=== PATIENT | female | born 1985 | race Caucasian/White ===

== ENCOUNTER 2019-04-01 11:26 | Outpatient (CLI) | payer OTHER, SELFPAY ==
--- NOTE | ~2019-04-01 | MM_ITS ---
EXAMINATION: MM screening wilma BI w salma HISTORY: Positive BRCA testing, screening mammogram TECHNIQUE: Craniocaudal and mediolateral oblique 3-D tomosynthesis images were obtained and synthetic 2-D images were generated. CAD analysis was submitted and interpreted. COMPARISON: None, baseline BREAST PARENCHYMAL COMPOSITION: There are scattered areas of fibroglandular density. FINDINGS: RIGHT BREAST: There is no evidence of suspicious mass, calcification, or architectural distortion to suggest malignancy. LEFT BREAST: There is focal asymmetry in the middle third of the upper outer quadrant of the breasts. In addition, an asymmetry is present in the anterior third of the inner breast 5 cm from the nipple on the craniocaudal view.. IMPRESSION: 1. Left breast findings as described above. 2. Additional mammographic views and possible breast ultrasound are recommended to evaluate for malig caden and establish a baseline given that this is the first mammographic examination. BI-RADS Category 0: Incomplete: Needs additional imaging evaluation. Reviewed, dictated and finalized at location A. NG INSTALLER IMPRESSION: 1. Left breast findings as described above. 2. Additional mammographic views and possible breast ultrasound are recommended to evaluate for malignancy and establish a baseline given that this is the fir st mammographic examination. BI-RADS Category 0: Incomplete: Needs additional imaging evaluation.
== END 2019-04-01 11:27 | disposition home or self-care (01) ==
LOC: ANHIMG 11:30
PROVIDERS: Visit Provider Internal Medicine Hematology & Oncology
DX: Z12.31 Encounter for screening mammogram for malignant neoplasm of breast (principal); R92.8 Other abnormal and inconclusive findings on diagnostic imaging of breast
CPT/HCPCS: 77063; 77067

== ENCOUNTER 2019-04-21 12:57 | Outpatient (CLI) | payer OTHER, SELFPAY ==
--- NOTE | ~2019-04-21 | MM_ITS ---
EXAMINATION: MM diagnostic mammo unilat LT HISTORY: Follow-up left breast asymmetries. TECHNIQUE: Additional 3-D tomosynthesis images of the left breast were performed and synthetic 2-D im ages were generated. CAD analysis was submitted and interpreted. COMPARISON: 04/01/2019 FINDINGS: Breast composed of scattered areas of fibroglandular density. The areas of asymmetry are le ss dense with spot compression views. No discrete mass or architectural distortion is identified. No suspicious calcifications. IMPRESSION: 1. Recommend left breast ultrasound for complete evaluation of left breast asymmetries. BI-RADS CATEGORY 0 - INCOMPLETE STUDY, NEED ADDITIONAL IMAGING EVALUATION. Reviewed, dictated and finalized at location A. IPPING CLERK IMPRESSION: 1. Recommend left breast ultrasound for complete evaluation of left breast asym metries. BI-RADS CATEGORY 0 - INCOMPLETE STUDY, NEED ADDITIONAL IMAGING EVALUATION.
== END 2019-04-21 12:58 | disposition home or self-care (01) ==
PROVIDERS: Visit Provider Internal Medicine Hematology & Oncology
DX: N63.0 Unspecified lump in unspecified breast (principal)
CPT/HCPCS: 77065

== ENCOUNTER 2019-04-24 10:51 | Outpatient (CLI) | payer OTHER, SELFPAY ==
--- NOTE | ~2019-04-24 | US_ITS ---
US breast LT complete INDICATION: Following up left breast asymmetry TECHNIQUE: Dedicated left breast ultrasound COMPARISON: Mammogram dated 04/21/2019 FINDINGS: The left breast is composed of normal heterogeneous echotexture without focal solid or cyst ic mass. IMPRESSION: 1: Normal left breast ultrasound. BI-RADS CATEGORY 1 - NEGATIVE Reviewed, dictated and finalized at location A. ERY MACHINE TENDER
== END 2019-04-24 10:52 | disposition home or self-care (01) ==
PROVIDERS: Visit Provider Internal Medicine Hematology & Oncology
DX: Z15.01 Genetic susceptibility to malignant neoplasm of breast (principal); Z15.09 Genetic susceptibility to other malignant neoplasm; N63.0 Unspecified lump in unspecified breast
CPT/HCPCS: 76641

== ENCOUNTER → 2020-01-18 15:24 | Outpatient (CLI) | payer OTHER, SELFPAY ==
--- NOTE | ~2020-01-18 | XR_ITS ---
EXAMINATION: XR lumbar spine 2-3V DATE: 01/18/2020 15:57 INDICATION: Mid to lower back pain TECHNIQUE: Anteroposterior and lateral views of the lumbar spine, and cone-down lateral view of the l umbosacral junction were obtained. COMPARISON: None. FINDINGS: Alignment is normal. Vertebral body and disc heights are normal. Sacrum and bilateral sacroiliac join ts are normal. Cholecystectomy clips in right upper quadrant. Normal bowel gas pattern. IMPRESSION: 1. . Negative lumbar spine radiographs. Reviewed, dictated and finalized at location H. O INTENSIVIST PHYSICIAN
== END ==
PROVIDERS: PCP Internal Medicine; Visit Provider Internal Medicine
DX: M54.5 Low back pain (principal)
CPT/HCPCS: 72100

== ENCOUNTER 2020-12-09 09:25 | Emergency (ER) | payer OTHER, SELFPAY ==
[2020-12-09 09:38] VITALS: BP 115/65; PULSE 64; RESP 16; TEMP 36.6; O2SAT 99
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
== END 2020-12-09 10:24 | disposition home or self-care (01) ==
PROVIDERS: Emergency Provider Nurse Practitioner
DX: H66.003 Acute suppurative otitis media without spontaneous rupture of ear drum, bilateral (principal); F17.210 Nicotine dependence, cigarettes, uncomplicated; E03.9 Hypothyroidism, unspecified
CPT/HCPCS: 99213; G0463

== ENCOUNTER 2021-12-26 12:17 | Emergency (ER) | payer OTHER, SELFPAY ==
--- NOTE | ~2021-12-26 | XR_ITS ---
EXAMINATION: XR shoulder RT min 2V DATE: 12/26/2021 13:05 INDICATION: Generalized intermittent right shoulder pain TECHNIQUE: AP internally and externally rotated, AP oblique externally rotated and transscapular Y vi ews of the right shoulder were obtained. COMPARISON: None FINDINGS: Normal alignment. No fracture. Glenohumeral joint is normal. Acromioclavicular joint is normal. Soft tissues are unremarkable. Visualized portion of the right upper lung zone is clear. IMPRESSION: Negative right shoulder radiographs. Reviewed, dictated and finalized at location B.
--- NOTE | ~2021-12-26 | XR_ITS ---
EXAMINATION: XR finger 1st RT min 2V DATE: 12/26/2021 13:05 INDICATION: Right thumb pain at the metacarpophalangeal joint TECHNIQUE: Dorsal palmar, lateral and oblique views of the right first digit were obtained COMPARISON: None FINDINGS: Alignment is normal. No fracture. Joint spaces are normal. Soft tissues are unremarkable. IMPRESSION: 1. Negative right thumb radiographs. Reviewed, dictated and finalized at location B.
[2021-12-26 12:23] VITALS: BP 123/95; PULSE 83; RESP 16; TEMP 36.3; O2SAT 100
--- NOTE | 2021-12-26 12:40 | ED.UPPEXIN ---
HPI - Extremity Injury (Upper) General Chief Complaint: Extremity Injury, Upper Stated Complaint: right shoulder/thumb pain Time Seen by Provider: 12/26/21 12:40 Source: patient, RN notes reviewed and old records reviewed Mode of arrival: ambulatory Limitations: no limitations History of Present Illness HPI narrative: 36-year-old female presents to the [facility] with complaints of right shoulder pain for 8 years. Patient has been diagnosed with tendinitis in the past. States that she has not been getting her referrals from her primary care provider. Also wants to be evaluated for the base of the right thumb pain that started several days ago. No treatment prior to arrival. Has full range of motion of the thumb. Denies any injury. Unable to reach to produce pain at this time Related Data Home Medications Medication Instructions Recorded Confirmed levothyroxine 125 mcg tablet 125 mcg PO DAILY 12/31/18 12/26/21 aspirin 81 mg tablet,delayed 81 mg DIRECTED 02/05/19 12/26/21 release atorvastatin 20 mg tablet 20 mg DIRECTED 12/26/21 12/26/21 Allergies Allergy/AdvReac Type Severity Reaction Status Date / Time latex Allergy Severe SWELLING Verified 09/16/18 12:51 WITH CONDOMS adhesive AdvReac Intermediate PEELS Verified 09/16/18 12:51 SKIN OFF Review of Systems Review of Systems: All systems reviewed & are unremarkable except as noted in HPI and below Constitutional: Constitutional: Reports no additional constitutional complaints, Denies chills and Denies fever(s) Eyes: Eyes: Reports no additional eye complaints ENT: Reports system reviewed and no additional complaints, except as documented Cardiovascular: Cardiovascular: Reports no additional cardiovascular complaints Respiratory: Respiratory: Reports no additional respiratory complaints Gastrointestinal: Gastrointestinal: Reports no additional gastrointestinal complaints Musculoskeletal: Musculoskeletal: Reports as per HPI Integumentary/Breasts: Skin/Breast: Reports system reviewed and no additional complaints, except as docu Neurologic: Reports system reviewed and no additional complaints, except as documented Psychiatric: Psychiatric: Reports no additional psychiatric complaints Allergic/Immunologic: Allergic/Immunologic: Reports no additional allergic/immunologic complaints PMFSH Past Medical History Medical History Anxiety with depression Brain injury Bronchitis Headache disorder Hypothyroidism IBS (irritable bowel syndrome) Surgical History Surgical History History of cholecystectomy History of tympanoplasty Previous section Tubal ligation status Social History Social History Smoking packs per day: 1 Smoking cigarettes per day: 20.0 Years smoked: 20 Smoking pack-years: 20.00 Smoking status: Current every day smoker Tobacco type: cigarettes Alcohol intake: never Substance use: never Comments At the time of my signature, I reviewed and agree with the nursing past medical, surgical, social, and family history. There is no relevant family history pertinent to the patient complaint. Exam Const: General: healthy appearing, no acute distress, alert and well nourished Nutritional Appearance: well nourished Orientation/consciousness: patient oriented x3 Limitations: no limitations HENMT: Head: normal to inspection Ears: external ears normal Eyes: General: appearance normal, both eyes and all related structures Pupils: Equal, round and reactive pupils present Neck: Neck: normal visual inspection, no lymphadenopathy and no meningeal signs Chest: Chest palpation & inspection: normal inspection of the chest Resp: Effort & Inspection: normal respiratory effort and no use of accessory muscles Auscultation: clear to auscultation
== END 2021-12-26 13:38 | disposition home or self-care (01) ==
PROVIDERS: Emergency Provider Nurse Practitioner; PCP Internal Medicine
DX: S46.911A Strain of unspecified muscle, fascia and tendon at shoulder and upper arm level, right arm, initial encounter (principal); X58.XXXA Exposure to other specified factors, initial encounter; M79.644 Pain in right finger(s); E03.9 Hypothyroidism, unspecified; F17.210 Nicotine dependence, cigarettes, uncomplicated
CPT/HCPCS: 73030; 73140; 99214; G0463

== ENCOUNTER 2021-12-27 09:39 | Outpatient (CLI) | payer OTHER, SELFPAY ==
--- NOTE | ~2021-12-27 | MM_ITS ---
EXAMINATION: MM screening wilma BI w salma HISTORY: Screening TECHNIQUE: Craniocaudal and mediolateral oblique 3-D tomosynthesis images were obtained and synthetic 2-D images were generated. CAD analysis was submitted and interpreted. COMPARISON: 04/01/2019 BREAST PARENCHYMAL COMPOSITION: There are scattered areas of fibroglandular density. FINDINGS: There is no evidence of suspicious mass, calcification, or architectural distortion to sugg est malignancy in either breast. There has been no suspicious interval change. IMPRESSION: 1. No mammographic evidence of malignancy. 2. Recommend routine screening mammography in one year. BI-RADS Category 1: Negative Reviewed, dictated and finalized at location A.
== END 2021-12-27 09:40 | disposition home or self-care (01) ==
PROVIDERS: PCP Internal Medicine; Visit Provider Surgery
DX: Z12.31 Encounter for screening mammogram for malignant neoplasm of breast (principal)
CPT/HCPCS: 77063; 77067

== ENCOUNTER 2022-04-26 19:12 | Emergency (ER) | payer OTHER, SELFPAY ==
[2022-04-26 19:20] VITALS: BP 128/90; PULSE 85; RESP 12; TEMP 36.6; O2SAT 99
--- NOTE | 2022-04-26 19:45 | ED.URI ---
HPI - URI/Sore Throat General Chief Complaint: Upper Respiratory Infection Stated Complaint: uri Time Seen by Provider: 04/26/22 19:29 Source: patient Mode of arrival: ambulatory Limitations: no limitations History of Present Illness HPI Narrative: patient having intermittent right ear pain, congestion, headache and cough for a week. took 1 dose of allergy medicine yesterday with mild relief. denies any shortness of breath, fever, sore throat. both kids recently had strep Related Data Home Medications Medication Instructions Recorded Confirmed levothyroxine 125 mcg tablet 125 mcg PO DAILY 12/31/18 04/26/22 aspirin 81 mg tablet,delayed 81 mg DIRECTED 02/05/19 04/26/22 release atorvastatin 20 mg tablet 20 mg DIRECTED 12/26/21 04/26/22 Allergies Allergy/AdvReac Type Severity Reaction Status Date / Time latex Allergy Severe SWELLING Verified 04/26/22 19:15 WITH CONDOMS adhesive AdvReac Intermediate PEELS Verified 04/26/22 19:15 SKIN OFF Review of Systems Review of Systems: CONSTITUTIONAL: Denies malaise, chills, sweats, or fever.? EYES: Denies visual changes, redness, or discharge.? ENT: Reports rhinorrhea, congestion, sinus pain, otalgia denies sore throat.? CARDIOVASCULAR: Denies chest pain, palpitations, or edema.? RESPIRATORY: Reports cough.? Denies dyspnea.? GASTROINTESTINAL: Denies abdominal pain, nausea, vomiting, diarrhea? SKIN: Denies rash or itching.? MUSCULOSKELETAL: Denies myalgia.? NEUROLOGIC: Denies headache All systems reviewed & are unremarkable except as noted in HPI and below PMFSH Past Medical History Medical History Anxiety with depression Brain injury Bronchitis Headache disorder Hypothyroidism IBS (irritable bowel syndrome) Surgical History Surgical History History of cholecystectomy History of tympanoplasty Previous section Tubal ligation status Social History Social History Smoking packs per day: 1 Smoking cigarettes per day: 20.0 Years smoked: 20 Smoking pack-years: 20.00 Smoking status: Current every day smoker Tobacco type: cigarettes Alcohol intake: never Substance use: never Living arrangements: with family Comments At time of signature, agree with nursing past medical, surgical, social and family history. There is no relevant family history pertinent to the presenting complaint? Exam Narrative: GENERAL: Well-appearing, well-nourished, and in no acute distress.? HEAD: Normocephalic, atraumatic.? EYES: PERRLA, conjunctivae clear, and EOMI. No nystagmus.? ENT: Nares clear, turbinates pink, no rhinorrhea or epistaxis. Mucous membranes moist. TM pearly haynes with sharp light reflex bilaterally, right TM scarring from 2 previous surgeries; no tragal tenderness. Oropharynx without erythema or lesions. Tonsils not enlarged and without exudate.? NECK: Supple. No lymphadenopathy. CHEST: No respiratory distress. Clear to auscultation.? No bony deformities, no asymmetry. Speaks in full sentences.? HEART: Regular rate and rhythm. No murmur heard. ? ABDOMEN: Soft, nontender, nondistended EXTREMITIES: Normal range of motion. No edema. ? SKIN: Warm, dry, no rash.? NEURO: Alert and oriented x3. No focal deficits. PSYCH: Normal mood and affect? Course Course Emergency Course: Patient is aware of diagnosis, understands and agrees to treatment plan.? Anticipatory guidance given.? Patient agrees to follow-up as directed and is aware of reasons to seek care at the emergency department.? Portions of this record may have been created with voice recognition software? Level of Care: Express Care Visit Vital Signs Vital signs: Vital Signs Temperature 36.6 C 04/26/22 19:20 Pulse Rate 85 04/26/22 19:20 Respiratory Rate 12 04/26/22 19:20 Blood Pressure 128/90
== END 2022-04-26 19:54 | disposition home or self-care (01) ==
PROVIDERS: Emergency Provider Nurse Practitioner Family; PCP Internal Medicine
DX: J06.9 Acute upper respiratory infection, unspecified (principal); E03.9 Hypothyroidism, unspecified; F17.210 Nicotine dependence, cigarettes, uncomplicated; Z79.82 Long term (current) use of aspirin
CPT/HCPCS: 99211; G0463

== ENCOUNTER 2023-07-10 13:40 | Outpatient (CLI) | payer OTHER, SELFPAY ==
--- NOTE | ~2023-07-10 | MM_ITS ---
EXAMINATION: MM screening wilma BI w salma HISTORY: Screening mammogram TECHNIQUE: Craniocaudal and mediolateral oblique 3-D tomosynthesis images were obtained and synthetic 2-D images were generated. CAD analysis was submitted and interpreted. COMPARISON: 12/27/2021 bilateral screening mammogram 04/24/2019 (complete breast ultrasound, reported negative 04/21/2019 diagnostic left mammogram 04/01/2019 bilateral screening mammogram BREAST PARENCHYMAL COMPOSITION: There are scattered areas of fibroglandular density. FINDINGS: Stable mild fibroglandular asymmetry. There is no evidence of suspicious mass, calcificatio n, or architectural distortion to suggest malignancy in either breast. There has been no suspicious i nterval change. IMPRESSION: 1. No mammographic evidence of malignancy. 2. Recommend routine screening mammography in one year. BI-RADS Category 1: Negative Reviewed, dictated and finalized at location B.
== END 2023-07-10 13:41 | disposition home or self-care (01) ==
LOC: ANHIMG 13:44
PROVIDERS: PCP Internal Medicine
DX: Z12.31 Encounter for screening mammogram for malignant neoplasm of breast (principal)
CPT/HCPCS: 77063; 77067

== ENCOUNTER 2023-10-26 11:33 | Emergency (ER) | payer OTHER, SELFPAY ==
[2023-10-26 11:40] VITALS: BP 99/62; PULSE 98; RESP 19; TEMP 37.1; O2SAT 96
--- NOTE | 2023-10-26 11:42 | ED.DENTAL ---
HPI - Dental/Oral General Chief complaint: Dental/Oral Stated complaint: Dental Pain Time Seen by Provider: 10/26/23 11:42 Source: patient, RN notes reviewed and old records reviewed Mode of arrival: ambulatory Limitations: no limitations History of Present Illness HPI Narrative: Patient presents with complaints of right lower dental pain. She reports that she had some dental work done at [facility] last week, now with pain and swelling to the site. She reports that she did not have an extraction, says she could not afford one. Related Data Home Medications Medication Instructions Recorded Confirmed aspirin 81 mg tablet,delayed 81 mg DIRECTED 02/05/19 10/26/23 release atorvastatin 20 mg tablet 20 mg DIRECTED 12/26/21 10/26/23 cetirizine 10 mg tablet 10 mg PO DAILY 10/26/23 10/26/23 dulaglutide 4.5 mg/0.5 mL 4.5 mg subcut DIRECTED 10/26/23 10/26/23 subcutaneous pen injector (Trulicity) levothyroxine 200 mcg tablet 200 mcg PO DAILY 10/26/23 10/26/23 metronidazole 500 mg tablet 500 mg PO DIRECTED 10/26/23 10/26/23 norethindrone (contraceptive) 0.35 0.35 mg PO DAILY 10/26/23 10/26/23 mg tablet omeprazole 40 mg capsule,delayed 40 mg PO DAILY 10/26/23 10/26/23 release Allergies Allergy/AdvReac Type Severity Reaction Status Date / Time latex Allergy Severe SWELLING Verified 10/26/23 11:34 WITH CONDOMS adhesive AdvReac Intermediate PEELS Verified 10/26/23 11:34 SKIN OFF Review of Systems Review of Systems: All systems reviewed & are unremarkable except as noted in HPI and below Constitutional: Constitutional: Reports no additional constitutional complaints ENT: Reports system reviewed and no additional complaints, except as documented, Reports as per HPI and Reports dental pain Cardiovascular: Cardiovascular: Reports no additional cardiovascular complaints Respiratory: Respiratory: Reports no additional respiratory complaints Gastrointestinal: Gastrointestinal: Reports no additional gastrointestinal complaints [facility] Past Medical History Medical History Anxiety with depression Brain injury Bronchitis Headache disorder Hypothyroidism IBS (irritable bowel syndrome) Surgical History Surgical History History of cholecystectomy History of tympanoplasty Previous section Tubal ligation status Social History Social History Smoking packs per day: 1 Smoking cigarettes per day: 20.0 Years smoked: 20 Smoking pack-years: 20.00 Smoking status: Current every day smoker Tobacco type: cigarettes Alcohol intake: never Substance use: never Living arrangements: with family Comments At the time of my signature, I reviewed and agree with the nursing past medical, surgical, social, and family history. There is no relevant family history pertinent to the patient complaint. Exam Const: General: cooperative, no acute distress, alert and awake Orientation/consciousness: oriented to person, oriented to place and oriented to time HENMT: Head: normal to inspection Ears: TM's normal bilaterally Teeth and gingiva: abnormal tooth and associated gingiva (right lower) Resp: Effort & Inspection: normal respiratory effort and able to speak in complete sentences Auscultation: clear to auscultation bilaterally, no crackles, no rales, no rhonchi and no wheezes Cardio: Palpation: normal PMI Rate: regular rate Rhythm: regular rhythm Heart sounds: S1 normal heart sound present and S2 normal heart sound present Neuro: General: oriented to person, oriented to place and oriented to time Cranial nerves: Yes CN's II-XII intact bilaterally Psych: Appearance: grossly normal Thought process: Normal thought process present Insight: Good insight present (Psych) Judgement: Good judgement present (Psych) Cou
== END 2023-10-26 11:55 | disposition home or self-care (01) ==
PROVIDERS: Emergency Provider Nurse Practitioner Family; PCP Internal Medicine
DX: K04.7 Periapical abscess without sinus (principal); F17.210 Nicotine dependence, cigarettes, uncomplicated; E03.9 Hypothyroidism, unspecified; Z79.82 Long term (current) use of aspirin
CPT/HCPCS: 99213; G0463

== ENCOUNTER 2023-11-04 16:45 | Emergency (ER) | payer OTHER, SELFPAY ==
--- NOTE | ~2023-11-04 | XR_ITS ---
EXAM: XR toe 1st RT min 2V DATE: 11/04/2023 17:23 HISTORY: KICKED ROCK X YESTERDAY . COMPARISON: 06/11/2017. FINDINGS: Normal mineralization. No fracture or dislocation. No lytic or blastic lesion. Mild degene rative change at the first MTP joint. No erosion or periosteal change. Soft tissues within normal johnson its. IMPRESSION: No acute osseous finding in the right first toe. Reviewed, dictated and finalized at location K.
[2023-11-04 16:56] VITALS: BP 118/79; PULSE 73; RESP 19; TEMP 37; O2SAT 98
--- NOTE | 2023-11-04 17:18 | ED.LOWEXIN ---
HPI - Extremity Injury (Lower) General Chief Complaint: Extremity Injury, Lower Stated Complaint: Right Foor Toe Pain Time Seen by Provider: 11/04/23 17:34 Source: patient and RN notes reviewed Mode of arrival: ambulatory Limitations: no limitations History of Present Illness HPI Narrative: 38-year-old female presents with concern of for injury to the 1st digit of her right foot. She reports over the weekend she jammed the toe on a boulder. She reports bruising. Reports pain with weight-bearing. She reports she has been taking ibuprofen. MD complaint: foot injury Related Data Home Medications Medication Instructions Recorded Confirmed aspirin 81 mg tablet,delayed 81 mg DIRECTED 02/05/19 11/04/23 release atorvastatin 20 mg tablet 20 mg DIRECTED 12/26/21 11/04/23 cetirizine 10 mg tablet 10 mg PO DAILY 10/26/23 11/04/23 dulaglutide 4.5 mg/0.5 mL 4.5 mg subcut DIRECTED 10/26/23 11/04/23 subcutaneous pen injector (Trulicity) levothyroxine 200 mcg tablet 200 mcg PO DAILY 10/26/23 11/04/23 norethindrone (contraceptive) 0.35 0.35 mg PO DAILY 10/26/23 11/04/23 mg tablet omeprazole 40 mg capsule,delayed 40 mg PO DAILY 10/26/23 10/26/23 release Allergies Allergy/AdvReac Type Severity Reaction Status Date / Time latex Allergy Severe SWELLING Verified 11/04/23 17:05 WITH CONDOMS adhesive AdvReac Intermediate PEELS Verified 11/04/23 17:05 SKIN OFF Review of Systems Review of Systems: CONSTITUTIONAL: Denies malaise, chills, sweats, or fever. SKIN: Denies rash or itching, open skin, laceration, abrasion, redness, warmth, swelling. MUSCULOSKELETAL: Reports pain in the 1st digit of the right foot NEUROLOGIC: Denies numbness, weakness All systems reviewed & are unremarkable except as noted in HPI and below PMFSH Past Medical History Medical History Anxiety with depression Brain injury Bronchitis Headache disorder Hypothyroidism IBS (irritable bowel syndrome) Surgical History Surgical History History of cholecystectomy History of tympanoplasty Previous section Tubal ligation status Social History Social History Smoking packs per day: 1 Smoking cigarettes per day: 20.0 Years smoked: 20 Smoking pack-years: 20.00 Smoking status: Current every day smoker Tobacco type: cigarettes Alcohol intake: never Substance use: never Living arrangements: with family Comments At time of signature, agree with nursing past medical, surgical, social and family history. There is no relevant family history pertinent to the presenting complaint Exam Narrative: GENERAL: Well-appearing, well-nourished, and in no acute distress. HEAD: Normocephalic, atraumatic. EYES: PERRLA, conjunctivae clear NECK: Supple. CHEST: Speaks in full sentences. No respiratory distress. HEART: Regular rate and rhythm. Normal and equal peripheral pulses. EXTREMITIES: 1st digit of right foot has grossly normal strength and sensation, grossly normal range of motion. No edema. Mild ecchymosis. Normal sensation with sensitivity to light touch and pain. No open wounds, no skin tenting, no devitalized tissue or atrophy, no trophic changes, no obvious deformity, alignment normal, nearby joints and structures intact. Distal pulses palpable and equal bilaterally, skin warm, dry, pink. Capillary refill less than 3 seconds. SKIN: Warm, dry, no rash. NEURO: Alert and oriented x3. PSYCH: Normal mood and affect Course Course Emergency Course: Patient is aware of diagnosis, understands and agrees to treatment plan. Anticipatory guidance given. Patient agrees to follow-up as directed and is aware of reasons to seek care at the emergency department. Portions of this record may have been created with voice recognition software Level o
== END 2023-11-04 17:44 | disposition home or self-care (01) ==
PROVIDERS: Emergency Provider Nurse Practitioner; PCP Internal Medicine
DX: S93.501A Unspecified sprain of right great toe, initial encounter (principal); W22.09XA Striking against other stationary object, initial encounter; E03.9 Hypothyroidism, unspecified; Z79.82 Long term (current) use of aspirin; F17.210 Nicotine dependence, cigarettes, uncomplicated
CPT/HCPCS: 73660; 99213; G0463

== ENCOUNTER 2024-06-11 10:39 | Emergency (ER) | payer OTHER, SELFPAY ==
[2024-06-11 10:50] VITALS: BP 108/83; PULSE 101; RESP 18; TEMP 36.7; O2SAT 99
[2024-06-11 11:14] LABS: EDSTREPNEGPOS1 Negative (Negative)
--- NOTE | 2024-06-11 11:30 | ED.URI ---
HPI - URI/Sore Throat General Chief Complaint: Upper Respiratory Infection Stated Complaint: Sore Throat Time Seen by Provider: 06/11/24 11:30 Source: patient, RN notes reviewed and old records reviewed Mode of arrival: ambulatory Limitations: no limitations History of Present Illness HPI Narrative: 39-year-old female presents to the [facility] with complaints of a sore throat since Saturday, 2 days ago. Reports that she sometimes feels congested. No treatment prior to arrival Related Data Home Medications ?Medication ?Instructions ?Recorded ?Confirmed ?Last Taken ?Type aspirin 81 mg tablet,delayed 81 mg DIRECTED 02/05/19 11/04/23 Unknown History release atorvastatin 20 mg tablet 20 mg DIRECTED 12/26/21 11/04/23 Unknown History cetirizine 10 mg tablet 10 mg PO DAILY 10/26/23 11/04/23 Unknown History dulaglutide 4.5 mg/0.5 mL 4.5 mg subcut DIRECTED 10/26/23 11/04/23 Unknown History subcutaneous pen injector (Trulicity) levothyroxine 200 mcg tablet 200 mcg PO DAILY 10/26/23 11/04/23 Unknown History norethindrone (contraceptive) 0.35 0.35 mg PO DAILY 10/26/23 11/04/23 Unknown History mg tablet omeprazole 40 mg capsule,delayed 40 mg PO DAILY 10/26/23 10/26/23 Unknown History release Allergies Allergy/AdvReac Type Severity Reaction Status Date / Time latex Allergy Severe SWELLING Verified 06/11/24 10:55 WITH CONDOMS adhesive AdvReac Intermediate PEELS Verified 06/11/24 10:55 SKIN OFF Review of Systems Review of Systems: All systems reviewed & are unremarkable except as noted in HPI and below Constitutional: Constitutional: Reports no additional constitutional complaints ENT: Reports as per HPI, Reports nasal congestion and Reports sore throat Cardiovascular: Cardiovascular: Reports no additional cardiovascular complaints, Denies chest pain and Denies dyspnea Respiratory: Respiratory: Reports no additional respiratory complaints, Denies chest congestion, Denies cough and Denies dyspnea Musculoskeletal: Musculoskeletal: Reports no additional musculoskeletal complaints Integumentary/Breasts: Skin/Breast: Reports system reviewed and no additional complaints, except as docu PMFSH Past Medical History Medical History Headache disorder IBS (irritable bowel syndrome) Anxiety with depression Bronchitis Hypothyroidism Brain injury Surgical History Surgical History History of tympanoplasty Previous section History of cholecystectomy Tubal ligation status Social History Social History Smoking packs per day: 1 Smoking cigarettes per day: 20.0 Years smoked: 20 Smoking pack-years: 20.00 Smoking status: Current every day smoker Tobacco type: cigarettes Alcohol intake: never Substance use: never Living arrangements: with family Comments At the time of my signature, I reviewed and agree with the nursing past medical, surgical, social, and family history. There is no relevant family history pertinent to the patient complaint. Exam Const: General: cooperative, healthy appearing, comfortable, no acute distress, well developed, alert and well nourished Nutritional Appearance: well nourished Orientation/consciousness: patient oriented x3 Limitations: no limitations HENMT: Head: normal to inspection Ears: hearing grossly normal bilaterally, external ears normal, TM's normal bilaterally, EAC's normal, mastoids normal and no periauricular adenopathy Face/Nose/Sinus: Normal external nose present, Normal nares present, No nasal discharge present, normal facial exam, sinuses nontender and face symmetric Mouth: Yes Normal oral and palatal mucosa present, Yes lip normal, Yes tongue normal and Yes moist mucous membranes Throat: posterior oropharynx normal, uvula midline, abnormal tonsil bilateral exudates and hypertrophy 2+; no erythema and no uvular edema Eyes: General: appearance normal, both eyes and all related structures Alignment and Position: alignment normal Neck: Neck: normal visual inspection, full ROM, no lymphadenopathy and no meningeal signs Chest: Chest palpation & inspection: normal inspection of the chest Resp: Effort & Inspection: normal respiratory effort and able to speak in complete sentences Auscultation: clear to auscultation bilaterally, no crackles, no rales, no rhonchi and no wheezes Cardio: Rate: regular rate Skin: General skin exam: normal color and no rashes or lesions noted Neuro: General: patient oriented x3, gait normal, moves all extremities and no meningeal signs Cognition (Neuro): normal cognition Speech: normal speech Gait exam (Neuro): Normal gait present Extrem: General: normal to inspection, full ROM, capillary refill normal and normal gait Psych: Appearance: grossly normal and well kempt Mental Status: mental status grossly normal Speech and movement: Normal speech and movement present and Clear speech present Affect: normal affect Attitude: cooperative Course Course Level of Care: Express Care Visit Vital Signs Vital signs: Vital Signs Temperature 98.1 F 06/11/24 10:50 Pulse Rate 101 H 06/11/24 10:50 Respiratory Rate 18 06/11/24 10:50 Blood Pressure 108/83 06/11/24 10:50 Pulse Oximetry 99 06/11/24 10:50 Oxygen Delivery Room Air 06/11/24 10:50 Temperature 98.1 F 06/11/24 10:50 Pulse Rate 101 H 06/11/24 10:50 Respiratory Rate 18 06/11/24 10:50 Blood Pressure 108/83 06/11/24 10:50 Pulse Oximetry 99 06/11/24 10:50 Oxygen Delivery Room Air 06/11/24 10:50 Reviewed MDM - URI/Sore Throat MDM Narrative Medical decision making narrative: Patient sitting in exam room. Nontoxic, vitals stable. Patient in no acute distress. Patient presents with sore throat x2 days, strep is negative however enlarged tonsils, exudate is noted on exam. Patient appropriate for outpatient treatment with close follow-up Discharge instructions reviewed with patient, as well as provided in writing per nursing staff. The instructions also include specific and strict return/GO TO THE ER as well as f/u information. All questions have been answered, and the patient deny any further questions with discharge and discharge plan. Some parts of this dictation were generated by voice recognition software and may contain typographical and/or grammatical inaccuracies. Lab Data Labs: Lab Results 06/11/24 Range/Units 11:12 POC Grp A Strep Screen Negative (Negative) Reviewed Critical Care Time Critical Care Time Critical Care Time: No Discharge Plan Discharge Clinical Impression: Tonsillitis with exudate Patient Disposition: Home Condition: Stable Instructions: Antibiotic Form, Tonsillitis (ED) Additional Instructions: Your rapid strep swab was negative today at [facility]. A throat culture will be sent to the laboratory for further testing. If the test is positive, you will receive a phone call within 48 hours and an appropriate antibiotic will be initiated at that time. It is very important to treat your symptoms. Drink plenty of water, Gatorade, Pedialyte, ice pops or Jell-O. -Alternate Tylenol and Motrin per package directions for fever or pain. You can alternate every 4 hours -Antihistamine medication such as Zyrtec/Claritin/Sandy during the day can help improve symptoms. -doing daily nasal irrigations can help relieve pressure your sinuses. Things like a Neti pot -Use Flonase twice a day for 5 days then daily to help reduce the inflammation and dry up your sinuses. -You can also use Mucinex. Be sure to drink plenty of water with this medication at least 8 ounces with every dose and it is important to drink 8 to 10 glasses of water per day. Water is a natural decongestant -Eat and drink things that are easy to swallow, like tea or soup, or popsicles. -Oral rinses such as: Salt water gargles and/or may use topical anesthetic (eg. Chloraseptic spray) or lozenges to relieve dryness or throat pain). -Frequent hand washing or hand safety deposit clerk is one of the best ways to prevent spread of infection. -Using a vaporizer or humidifier at night will also help thin secretions and help with coughing up phlegm. -Follow up with primary care provider in 7-10 days if condition is not improving - For new or worsening symptoms go directly to the nearest ER Patient Language: Latvian Prescriptions: New amoxicillin 500 mg tablet 500 mg PO Q12H Qty: 20 0RF No Action aspirin 81 mg tablet,delayed release (DR/EC) 81 mg DIRECTED atorvastatin 20 mg tablet 20 mg DIRECTED cetirizine 10 mg tablet 10 mg PO DAILY omeprazole 40 mg capsule,delayed release(DR/EC) 40 mg PO DAILY levothyroxine 200 mcg tablet 200 mcg PO DAILY norethindrone (contraceptive) 0.35 mg tablet 0.35 mg PO DAILY Trulicity 4.5 mg/0.5 mL pen injector 4.5 mg SUBCUT DIRECTED clindamycin HCl 300 mg capsule 300 mg PO BID Qty: 20 0RF Follow-up/Referrals: Manuel,Marco Antonio Harrison MD [Primary Care Provider] - 2 Weeks ([facility] care follow up ) Time of Disposition: 11:39
== END 2024-06-11 11:45 | disposition home or self-care (01) ==
PROVIDERS: Emergency Provider Nurse Practitioner; PCP Internal Medicine
DX: J03.90 Acute tonsillitis, unspecified (principal); E03.9 Hypothyroidism, unspecified; F17.210 Nicotine dependence, cigarettes, uncomplicated
CPT/HCPCS: 87081; 87880; 99213; G0463

== ENCOUNTER 2024-08-17 12:53 | Outpatient (CLI) | payer OTHER, SELFPAY ==
--- NOTE | ~2024-08-17 | US_ITS ---
EXAM: PELVIC ULTRASOUND HISTORY: BRCA Gene Mutation COMPARISON: None FINDINGS: UTERUS: 7.1 x 3.9 x 5.6 cm. The uterus is anteverted and anteflexed. The endometrial complex measures 11mm, and is ill-defined with multiple cystic areas versus free flui d within the endometrial canal. RIGHT OVARY: The right ovary is unremarkable in size measuring 3.7 x 2.4 x 3.8 cm. Dopplerable flow is identified. Within the right ovary is a anechoic focus measuring 8.1 x 11.4 mm. LEFT OVARY: The left ovary is unremarkable in size measuring 2.8 x 1.3 x 3.0 cm Dopplerable flow is identified. Anechoic focus within the left ovary measuring 7.6 x 6.6 mm. No free fluid is identified within the pelvis. IMPRESSION: Extensive bowel gas precludes adequate evaluation of the ovaries via the transvaginal approach. The e ndometrial complex is not dilated, but is ill-defined and contains multiple cystic areas versus free fluid within the endometrial canal. Anechoic foci detected within the bilateral ovaries, as detailed above. Reviewed, dictated and finalized at location A. IMPRESSION: Extensive bowel gas precludes adequate evaluation of the ovaries via the transv aginal approach. The endometrial complex is not dilated, but is ill-defined and contains multiple cystic areas versus free fluid within the endometrial canal. Anechoic foci detected within the bilateral ovaries, as detailed above.
== END 2024-08-17 12:54 | disposition home or self-care (01) ==
PROVIDERS: PCP Internal Medicine; Visit Provider Internal Medicine Hematology & Oncology
DX: Z15.01 Genetic susceptibility to malignant neoplasm of breast (principal); Z15.09 Genetic susceptibility to other malignant neoplasm; D72.820 Lymphocytosis (symptomatic)
CPT/HCPCS: 76830; 76856

== ENCOUNTER 2024-12-19 10:37 | Emergency (ER) | payer OTHER, SELFPAY ==
[2024-12-19 10:44] VITALS: BP 133/74; PULSE 90; RESP 18; TEMP 36.6; O2SAT 99
--- NOTE | 2024-12-19 11:33 | ED.FEMALEGU ---
HPI - Female Genitourinary General Chief complaint: Urogenital-Female Stated complaint: UTI Time Seen by Provider: 12/19/24 11:10 Source: patient, RN notes reviewed and old records reviewed Mode of arrival: ambulatory Limitations: no limitations History of Present Illness HPI Narrative: 39 year old female who presents to [facility] with complaints of having urinary frequency and burning with urination for the past 2 days. Patient reports that she had total laparoscopic hysterectomy 1.5 weeks ago and they did but flores catheter in OR, feels she has been doing well post op. Patient reports that she does have some lower pelvic pressure, denies any vaginal bleeding or any vaginal discharge. Patient reports that she has been having normal bowel movements, has been taking Ducolax, Miralax, Tylenol and and Ibuprofen. Patient reports no known fevers, chills or sweats, denies any nausea or vomiitng. MD elicited complaint: UTI (symptoms) Pertinent past history: other (complete laparoscopic hysterectomy 1.5 weeks ago.) Onset (ago): day(s) (2) Location of symptoms: urethra and pelvis (lower pelvic pressure) Severity: mild Quality of pain: burning and other (pressure) Vaginal discharge: none Vaginal bleeding: none Treatment prior to arrival: acetaminophen and NSAIDs Related Data Home Medications ?Medication ?Instructions ?Recorded ?Confirmed ?Last Taken ?Type atorvastatin 20 mg tablet 20 mg PO DIRECTED 12/26/21 11/04/23 Unknown History docusate sodium 100 mg capsule mg PO 12/19/24 Unknown History enoxaparin 40 mg/0.4 mL mg 12/19/24 Unknown History subcutaneous syringe estradiol 0.1 mg/24 hr semiweekly 12/19/24 Unknown History transdermal patch ibuprofen 600 mg tablet mg 12/19/24 Unknown History levothyroxine 100 mcg tablet mcg 12/19/24 Unknown History levothyroxine 88 mcg tablet mcg 12/19/24 Unknown History polyethylene glycol 3350 17 g 12/19/24 Unknown History gram/dose oral powder Allergies Allergy/AdvReac Type Severity Reaction Status Date / Time latex Allergy Severe SWELLING Verified 12/19/24 11:23 WITH CONDOMS adhesive AdvReac Intermediate PEELS Verified 12/19/24 11:23 SKIN OFF Review of Systems Review of Systems: CONSTITUTIONAL: Denies fever, chills, or sweats. CARDIOVASCULAR: Denies chest pain, palpitations, or edema. RESPIRATORY: Denies cough or dyspnea. GASTROINTESTINAL: Denies any acute abdominal pain reports some lower pelvic pressure, denies, nausea, vomiting, or diarrhea. GENITOURINARY: Reports dysuria, frequency. Denies flank pain or hematuria. SKIN: Denies rash or itching. MUSCULOSKELETAL: Denies back pain or myalgia. Denies CVA tenderness NEUROLOGIC: Denies headache All systems reviewed & are unremarkable except as noted in HPI and below PMFSH Past Medical History Medical History Headache disorder IBS (irritable bowel syndrome) Anxiety with depression Bronchitis Hypothyroidism Brain injury Surgical History Surgical History Status post total hysterectomy and bilateral salpingo-oophorectomy laparoscopic History of tympanoplasty Previous section History of cholecystectomy Tubal ligation status Social History Social History Smoking packs per day: 1 Smoking cigarettes per day: 20.0 Years smoked: 20 Smoking pack-years: 20.00 Smoking status: Current every day smoker Tobacco type: cigarettes Alcohol intake: never Substance use: never Living arrangements: with family Comments At time of signature, agree with nursing past medical, surgical, social and family history. There is no relevant family history pertinent to the presenting complaint Exam Narrative: GENERAL: Well-appearing, well-nourished, and in no acute distress. HEAD: Normocephalic, atraumatic. NECK: Supple.no lymphadenopathy CHEST: Clear to auscultation. No respiratory distress. no acute cough or any dyspnea noted SAO2 99% on room air HEART: Regular rate and rhythm. No murmur heard. Normal peripheral pulses. ABDOMEN: Soft, nontender to palpation, reports some lower pelvic pressure, nondistended, normal active bowel sounds. No CVA tenderness, no visible blood in urine noted, Patient is 1.5 weeks post op for total laparoscopic hysterectomy. Report urinary frequency and burning with urination EXTREMITIES: Normal range of motion. No edema. SKIN: Warm, dry, no rash. NEURO: No focal deficits. Alert and oriented x3. Course Course Emergency Course: Patient is aware of diagnosis, understands and agrees to treatment plan.? Anticipatory guidance given.? Patient agrees to follow-up as directed and is aware of reasons to seek care at the emergency department. Portions of this record may have been created with voice recognition software Level of Care: Express Care Visit Vital Signs Vital signs: Vital Signs Temperature 36.6 C 12/19/24 10:44 Pulse Rate 90 12/19/24 10:44 Respiratory Rate 18 12/19/24 10:44 Blood Pressure 133/74 12/19/24 10:44 Pulse Oximetry 99 12/19/24 10:44 Oxygen Delivery Room Air 12/19/24 10:44 Temperature 36.6 C 12/19/24 10:44 Pulse Rate 90 12/19/24 10:44 Respiratory Rate 18 12/19/24 10:44 Blood Pressure 133/74 12/19/24 10:44 Pulse Oximetry 99 12/19/24 10:44 Oxygen Delivery Room Air 12/19/24 10:44 reviewed MDM - Female Genitourinary MDM Narrative Medical decision making narrative: Exam findings and UA show no acute concerns or changes; patient is non-toxic appearing and is in no distress.? Patient is appropriate for outpatient treatment and follow-up. Differential Diagnosis Differential diagnosis: Likely urinary tract infection, cystitis and other (dysuria and urinary tract infection symptoms.) Medical Records Attestation: I reviewed the patient's medical records. Lab Data Attestation: I reviewed the patient's lab results. Lab results narrative: urine dip: urine dark and cloudy see results urine culture sent Labs: Lab Results 12/19/24 Range/Units 11:40 POC Urine Color Dark POC Urine Clarity Cloudy POC Urine pH 6.0 POC Ur Specif Willis 1.025 POC Urine Protein Negative (Negative) POC Ur Glucose (UA) Negative (Negative) POC Urine Ketones Negative (Negative) POC Urine Blood Negative (Negative) POC Urine Nitrite Negative (Negative) POC Urine Bilirubin Negative (Negative) POC Urine Urobilinogen 0.2 POC U Leukocyte Esteras Trace (Negative) reviewed Critical Care Time Critical Care Time Critical Care Time: No Discharge Plan Discharge Clinical Impression: Urinary tract infection Qualifiers: Urinary tract infection type: site unspecified Hematuria presence: without hematuria Qualified Code(s): N39.0 - Urinary tract infection, site not specified Patient Disposition: Home Condition: Stable Instructions: Antibiotic Form, Dysuria (ED) Additional Instructions: Increase fluids especially cranberry juice and water Avoid caffeine and carbonated beverages Antibiotic as directed Medicine as directed--cautioned it will cause your urine to be bright orange Tylenol/ibuprofen for pain or fever Follow-up with her primary care provider if further problems or concerns Recheck if you have fever over 101, nausea and vomiting. If your symptoms persist, change or worsen significantly before you can contact your personal physician then please, without delay, go to the emergency department for further evaluation. Follow-up with PCP in 7-10 days or sooner if needed Follow up with PCP soon in regards to your blood pressure which is elevated above threshold for referral. Blood pressure above 120/80 may indicate pre-hypertension. 133/74 Patient Language: Sudanese Prescriptions: New nitrofurantoin monohyd/m-cryst [Macrobid] 100 mg capsule 100 mg PO Q12H 5 Days Qty: 10 0RF Rx Instructions: must administer with a meal/food No Action estradiol 0.1 mg/24 hr patch semiweekly levothyroxine 100 mcg tablet levothyroxine 88 mcg tablet docusate sodium 100 mg capsule PO ibuprofen 600 mg tablet polyethylene glycol 3350 17 gram/dose powder enoxaparin 40 mg/0.4 mL syringe atorvastatin 20 mg tablet 20 mg PO DIRECTED Follow-up/Referrals: Manuel,Marco Antonio Harrison MD [Primary Care Provider, Unknown] Time of Disposition: 11:36 Quality Beaman Coma Scale Eyes: Open Verbal: Oriented and Alert Motor: Follows Commands Roxi Coma Total Score: 15
[2024-12-19 11:43] LABS: EDUAAPPEAR Cloudy; EDUABILI Negative (Negative); EDUABLOOD Negative (Negative); EDUACOLOR1 Dark; EDUAGLUCOSE Negative (Negative); EDUAKETONE Negative (Negative); EDUALEUKO Trace (Negative); EDUANITRATE Negative (Negative); EDUAPH 6.0; EDUAPROTEIN Negative (Negative); EDUASPGRAVITY 1.025; EDUAUROBILI 0.2
== END 2024-12-19 11:48 | disposition home or self-care (01) ==
PROVIDERS: Emergency Provider Registered Nurse; PCP Internal Medicine
DX: N39.0 Urinary tract infection, site not specified (principal); E03.9 Hypothyroidism, unspecified; F17.210 Nicotine dependence, cigarettes, uncomplicated; Z90.710 Acquired absence of both cervix and uterus
CPT/HCPCS: 81003; 87086; 99213; G0463